=== PATIENT | male | born 1980 | race Two or more races ===

== ENCOUNTER 2018-06-09 08:00 | Emergency (ER) | payer MEDICAID, OTHER ==
[~2018-06-09] VITALS: Ht 167.6 cm; Wt 90.1 kg
[2018-06-09 10:00] VITALS: BP 129/78
== END 2018-06-09 10:22 | disposition home or self-care (01) ==
LOC: ER 08:00
DX: J06.9 Acute upper respiratory infection, unspecified (principal); R07.81 Pleurodynia; F17.200 Nicotine dependence, unspecified, uncomplicated; Z98.890 Other specified postprocedural states
CPT/HCPCS: 71045; 99283